=== PATIENT | male | born 1955 | race Two or more races ===

== ENCOUNTER 2019-07-30 22:47 | Inpatient (IN) | payer OTHER ==
[~2019-07-30] VITALS: Ht 170.2 cm; Wt 78.9 kg
--- NOTE | 2019-07-30 22:55 | NUR ---
RN OPENING NOTE: PT TRANSFERRED TO UNIT FROM [facility] VIA GURNEY ACCOMPANIED BY 2 EMT PERSONNEL. ADMIT DX OF EMPHYSEMA. A&OX4 AND AMBULATORY. ON 2L/MIN NC, SATING WELL. HAS BLE EDEMA. HAS LEFT AC #20 IV. PATENT, FLUSHED, CDI. SKIN INTACT, NOTED W/ ONLY BLE SCABS. PICTURES TAKEN AND PLACED IN CHART. VITALS ARE BP:141/76, P:89, RR:17, O2: 95% ON 2L NC, STATED NO PAIN AT THIS TIME. MED RECON WILL BE DONE. BED IN LOWEST AND LOCKED POSITION AND CALL LIGHT WITHIN REACH. WILL CONTINUE TO MONITOR. Addendum: 07/31/19 at 0153 by ROBERT ELENA RN ON TELE MONITOR SHOWING SR.
[2019-07-30] MEDS ORDERED: ALPR2TAB2 PO (23:57)
[2019-07-30] MEDS ORDERED: FURO-145 PO (23:57)
[2019-07-30] MEDS ORDERED: DIAZ10TA PO (23:57)
[2019-07-30] MEDS ORDERED: OXYC30TA2 PO (23:57)
[2019-07-31] VITALS (9 sets, daily range): BP systolic 117–151; BP diastolic 71–97
[2019-07-31] MEDS ORDERED: MAGNESIUM HYDROXIDE 30 ML UDC PO PRN
[2019-07-31] MEDS ORDERED: Z GUARD REMEDY 2 OZ OINT TP PRN
[2019-07-31] MEDS ORDERED: ACETAMINOPHEN 325 MG TABLET PO PRN
[2019-07-31] MEDS ORDERED: MAG HYDROX/AL HYDROX/SIMETH 30 ML UDC PO PRN
[2019-07-31] MEDS ORDERED: HYDROCODONE/APAP 5/325MG 1 EACH TABLET PO PRN
[2019-07-31] MEDS ORDERED: ONDANSETRON HCL/PF 4 MG/2 ML VIAL IVP PRN
[2019-07-31] MEDS ORDERED: ZOLPIDEM TARTRATE 5 MG TABLET PO PRN
[2019-07-31] MEDS ORDERED: LORAZEPAM INJ 2 MG/ML VIAL IV PRN (01:30)
[2019-07-31] MEDS ORDERED: ALPRAZOLAM 1 MG TABLET PO PRN (01:30)
--- NOTE | 2019-07-31 06:37 | NUR ---
RN CLOSING NOTES: PT RESTING IN BED ON 2L/MIN NC TOLERATING WELL. NO RESPIRATORY DISTRESS OR ACUTE CHANGES NOTED DURING SHIFT. PT NPO PER MD ORDER. ON TELE MONITOR SHOWING SR. NO COMPLAINTS OF PAIN AT THIS TIME. KEPT PT CLEAN AND DRY. IV SITE CDI. SAFETY MEASURES IN PLACE. BED IN LOWEST AND LOCKED POSITION, CALL LIGHT W/IN REACH. WILL ENDORSE TO AM NURSE FOR MTIZI.
--- NOTE | 2019-07-31 07:33 | NUR ---
CRATE REPAIRER OPENING NOTE PT WAS RECEIVED IN BED AT LOWEST AND LOCKED POSITION WITH SIDE RAILS UPX2, A/OX4 BREATHING EVEN AND UNLABORED ON 2L VIA WITH NO S/S OF ANY DISTRESS OR PAIN AT THIS TIME, IV IS PATENT AND INTACT, ON TELE MONITOR SHOWING SINUS RHYTHM, AWAITING FOR CARDIO CONSULT, SAFETY PRECAUTIONS IN PLACE, CALL LIGHT IN REACH, WILL MONITOR ACCORDINGLY
[2019-07-31] MEDS: DIAZEPAM 10 MG TABLET PO SCH ×2 (08:01→16:01)
[2019-07-31] MEDS: ASPIRIN 81 MG TAB.CHEW PO SCH (08:01)
[2019-07-31] MEDS: NICOTINE PATCH (21MG) 21 MG PATCH.TD24 TD SCH (08:01)
[2019-07-31 08:22] LABS: BASOPHILS % (AUTO) 0.7 % (0.0-2.0); EOSINOPHILS % (AUTO) 1.8 % (0.0-6.0); HEMATOCRIT 43 % (39-51); HEMOGLOBIN 14.1 g/dL (13.5-17.5); LYMPHOCYTES # (AUTO) 1.8 /CMM (0.8-4.8); LYMPHOCYTES % (AUTO) 27.9 % (20.0-44.0); MEAN CORPUSCULAR HGB CONC 33 g/dl (31.0-36.0); MEAN CORPUSCULAR VOLUME 93 fL (80-96); MONOCYTES # (AUTO) 0.5 /CMM (0.1-1.30); MONOCYTES % (AUTO) 7.7 % (2.0-12.0); NEUTROPHILS % (AUTO) 61.9 % (43.0-81.0); PLATELET COUNT (AUTO) 275 /CMM (150-450); RED BLOOD CELL COUNT(AUTO) 4.62 MIL/uL (4.5-6.0); WHITE BLOOD COUNT (AUTO) 6.5 K/uL (4.3-11.0)
[2019-07-31] MEDS ORDERED: FUROSEMIDE 20 MG TABLET PO SCH (09:00)
[2019-07-31] MEDS ORDERED: PANTOPRAZOLE 40 MG VIAL IV SCH (09:00)
[2019-07-31 09:05] LABS: CALCIUM, SERUM 8.4 mg/dL (8.5-10.1); PHOSPHORUS 3.1 mg/dL (2.5-4.9); POTASSIUM 3.5 mmol/L (3.5-5.1)
[2019-07-31 09:18] LABS: THYROID STIMULATING HORMONE 4.305 uIU/mL (0.358-3.74)
--- NOTE | 2019-07-31 10:39 | NUR ---
RN NOTE NOTIFIED OF PT NEEDING PAIN MEDICATION BUT DUE TO NPO DIAGNOSIS HE CANNOT TAKE ANY PO MEDS, ORDER RECEIVED FOR MORPHINE 2MG IV Q4H PRN
[2019-07-31] MEDS: MORPHINE SULFATE INJ 2 MG/ML DISP.SYRIN IV PRN (11:00)
[2019-07-31] MEDS ORDERED: ASPIRIN 81 MG TAB.CHEW PO SCH (12:00)
[2019-07-31] MEDS: PANTOPRAZOLE 40 MG TABLET.DR PO SCH (12:44)
[2019-07-31] MEDS: METOPROLOL TARTRATE 50 MG TABLET PO SCH ×2 (12:44→21:27)
[2019-07-31] MEDS: ATORVASTATIN 40 MG TABLET PO SCH (12:44)
[2019-07-31] MEDS: ENOXAPARIN SODIUM 40 MG/0.4 ML DISP.SYRIN SQ SCH (12:45)
--- NOTE | 2019-07-31 18:10 | NUR ---
OPTOMECHANICAL ENGINEER CLOSING NOTE PT IN BED AT LOWEST AND LOCKED POSITION WITH SIDE RAILS UPX2, A/OX4 BREATHING EVEN AND UNLABORED VIA NC WITH NO DISTRESS OR PAIN AT THIS TIME, IV IS PATENT AND INTACT, ON TELE MONITOR SHOWING SR, SAFETY PRECAUTIONS IN PLACE, CALL LIGHT IN REACH, ALL NEEDS ATTENDED TO, WILL ENDORSE TO NIGHT RN FOR MITZI.
--- NOTE | 2019-07-31 19:35 | NUR ---
MS RN OPENING NOTE RECEIVED PATIENT IN BED, A/O X 4. PATIENT IS AMBULATORY. ON 2L NS O2 TOLERATING WELL. BREATHING EVEN AND UNLABORED. NO SOB OR ACUTE DIASTERS NOTED AT THIS TIME. IV ON LAC # 20 SL, PATENT AND INTACT. NO INFILTRATION AT IV SITE. FAMILY AT BEDSIDE. SAFETY PRECAUTIONS IN PLACE, CALL LIGHT WITHIN REACH, BED IN LOW/LOCKED POSITION. WILL CONTINUE TO MONITOR.
[2019-08-01] VITALS (21 sets, daily range): BP systolic 134–166; BP diastolic 51–122
[2019-08-01] MEDS: MORPHINE SULFATE INJ 2 MG/ML DISP.SYRIN IV PRN ×3 (06:58→13:38)
[2019-08-01 07:28] LABS: BASOPHILS # (AUTO) 0.1 /CMM (0.0-0.2); BASOPHILS % (AUTO) 0.8 % (0.0-2.0); EOSINOPHILS % (AUTO) 3.8 % (0.0-6.0); HEMATOCRIT 42 % (39-51); HEMOGLOBIN 13.8 g/dL (13.5-17.5); LYMPHOCYTES # (AUTO) 1.8 /CMM (0.8-4.8); MEAN CORPUSCULAR HGB CONC 33 g/dl (31.0-36.0); MEAN CORPUSCULAR VOLUME 93 fL (80-96); MONOCYTES # (AUTO) 0.7 /CMM (0.1-1.30); MONOCYTES % (AUTO) 9.3 % (2.0-12.0); NEUTROPHILS # (AUTO) 4.6 /CMM (1.8-8.9); NEUTROPHILS % (AUTO) 62.1 % (43.0-81.0); PLATELET COUNT (AUTO) 276 /CMM (150-450); WHITE BLOOD COUNT (AUTO) 7.5 K/uL (4.3-11.0)
--- NOTE | 2019-08-01 07:41 | NUR ---
MS RN CLOSING NOTE PATIENT IN BED AWAKE, A/O X 4. PATIENT IS AMBULATORY. ON 2L NS O2 TOLERATING WELL. BREATHING EVEN AND UNLABORED. NO SOB OR ACUTE DIASTERS NOTED AT THIS TIME. IV ON LAC # 20 SL, PATENT AND INTACT. NO INFILTRATION AT IV SITE. PATIENT WAS NPO SINCE MID-NIGHT FOR CARDIAC CATH THIS MORNING. SAFETY PRECAUTIONS IN PLACE, CALL LIGHT WITHIN REACH, BED IN LOW/LOCKED POSITION. ENDORSED THE PATIENT TO AM RN FOR MITZI.
[2019-08-01 07:46] LABS: ALBUMIN 2.9 g/dL (3.4-5.0); BILIRUBIN,TOTAL 0.3 mg/dL (0.2-1.0); CALCIUM, SERUM 8.7 mg/dL (8.5-10.1); CREATININE 1.1 mg/dL (0.6-1.3); MAGNESIUM 1.9 mg/dL (1.8-2.4); PHOSPHORUS 3.5 mg/dL (2.5-4.9); POTASSIUM 3.7 mmol/L (3.5-5.1); TOTAL PROTEIN, SERUM 6.8 g/dL (6.4-8.2)
--- NOTE | 2019-08-01 08:09 | NUR ---
RN OPENING NOTES RECEIVED PATIENT IN BED AWAKE, A/O X 4. PATIENT IS AMBULATORY. ON 2L NS O2 TOLERATING WELL. BREATHING EVEN AND UNLABORED. NO SOB OR ACUTE DISTRESS NOTED AT THIS TIME. IV ON LAC # 20 SL, PATENT AND INTACT. NO INFILTRATION AT IV SITE. PATIENT WAS NPO SINCE MID-NIGHT FOR CARDIAC CATH THIS MORNING. SAFETY PRECAUTIONS IN PLACE, CALL LIGHT WITHIN REACH, BED IN LOW/LOCKED POSITION. WILL CONTINUE TO MONITOR.
[2019-08-01] MEDS: ENOXAPARIN SODIUM 40 MG/0.4 ML DISP.SYRIN SQ SCH ×2 (09:00→09:33)
[2019-08-01] MEDS: ASPIRIN 81 MG TAB.CHEW PO SCH (09:00)
[2019-08-01] MEDS: NICOTINE PATCH (21MG) 21 MG PATCH.TD24 TD SCH (09:10)
--- NOTE | 2019-08-01 09:37 | NUR ---
RN NOTES LOVENOX 40MG IS ON HOLD, PATIENT IS FOR CARDIAC CATH, ITS OPEN, WASTED AND WITNESSED BY RN.
[2019-08-01] MEDS ORDERED: VERAPAMIL HCL IV 5 MG/2 ML VIAL ONE (10:24)
[2019-08-01] MEDS ORDERED: LIDOCAINE HCL/PF 1% 30 ML SDV ONE (10:25)
[2019-08-01] MEDS ORDERED: NITROGLYCERIN ICAR 1,000 MCG/10 ML VIAL ICAR ONE (10:25)
[2019-08-01] MEDS ORDERED: IODIXANOL 320MG/ML 100 ML IV ONE (10:27)
[2019-08-01] MEDS ORDERED: IV NS 0.9% 1,000 ML ONE (10:32)
[2019-08-01] MEDS ORDERED: IV SET PRIMARY 1 EA INFUS.SET MC ONE (10:32)
[2019-08-01] MEDS ORDERED: IV NS 0.9% 50 ML IV ONE (10:35)
[2019-08-01] MEDS ORDERED: HEPARIN SODIUM, PORCINE 1,000 UNIT/ML VIAL ONE (10:37)
--- NOTE | 2019-08-01 11:07 | NUR ---
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 VITAL SIGN TAKEN AND RECORDED.
[2019-08-01] MEDS ORDERED: MIDAZOLAM HCL 2 MG/2ML VIAL ONE (11:38)
[2019-08-01] MEDS ORDERED: FENTANYL PF 100MCG/2ML AMPUL ONE (11:38)
--- NOTE | 2019-08-01 12:45 | NUR ---
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 TR band to R radius no bleeding noted. Pt's extremities all cool to touch; pt reports poor perfusion throughout as baseline. Bilat equal cap refill and perfusion noted. Pulses palpable and present throughout. Oriented to unit and POC, verbalized understanding. Will cont to monitor pt.
[2019-08-01] MEDS: PANTOPRAZOLE 40 MG TABLET.DR PO SCH (13:26)
[2019-08-01] MEDS: ATORVASTATIN 40 MG TABLET PO SCH (13:26)
[2019-08-01] MEDS ORDERED: IV NS 0.9% 1,000 ML IV ONE (13:30)
[2019-08-01] MEDS: METOPROLOL TARTRATE 50 MG TABLET PO SCH ×2 (13:35→20:40)
[2019-08-01] MEDS ORDERED: DIAZEPAM 5 MG TABLET PO SCH (17:00)
--- NOTE | 2019-08-01 18:05 | NUR ---
ICU/RN: Dr Crowley informed that pt still has TR band on; difficulty removing last 3-5cc air from band, starts bleeding and requires reinflation. No hematoma noted, pulses present and equal bilaterally, no neuro deficits noted. Per MD, if pt continues to bleed keep pt overnight.
--- NOTE | 2019-08-01 18:45 | NUR ---
ICU/RN: TR band off; no bleeding noted, tegaderm applied. Dr Crowley notified with instructions to keep observe pt longer prior to discharge; okay to discharge home if no more bleeding noted per MD. Pt in agreement with plan.
[2019-08-01] MEDS ORDERED: ASPI-1169 PO (19:08)
--- NOTE | 2019-08-01 19:30 | NUR ---
SAFETY GLASS INSTALLER INITIAL NOTED RECEIVED PATIENT IN BED, AWAKE, ALERT AND ORIENTED X4, ABLE TO VERBALIZE NEEDS. PATIENT S/P CARDIAC CATH, TR BAND REMOVED PRIOR TO START OF SHIFT. SITE NOTED TO BE COVERED WITH TEGADERM, NO BLEEDING NOTED. PATIENT SR ON TELEMONITOR, IV SITES PATENT AND INTACT, FLUSHED WITH NS, FREE FROM ANY S/S OF INFILTRATION OR PHLEBITIS. PLAN OF CARE DISCUSSED WITH PATIENT, INCLUDING DISCHARGE. PATIENT VERBALIZES UNDERSTANDING, ALL QUESTIONS ANSWERED ABLE. WILL CONTINUE TO MONITOR
--- NOTE | 2019-08-01 21:00 | NUR ---
RADIAL DRILL PRESS SET UP OPERATOR NOTES - DISCHARGE RADIAL SITE REMAINS COVERED WITH TEGADERM, NO BLEEDING AT SITE. ALL DISCHARGE INSTRUCTIONS DISCUSSED AND SIGNED, VERBALIZED UNDERSTANDING. PATIENT DISCHARGED TO HOME VIA PRIVATE AUTO.
== END 2019-08-01 21:02 | disposition home or self-care (01) | DRG 191 ==
LOC: TELE1 22:47 → MEDSG1 07-31 19:49 → ICU 08-01 11:28
PROVIDERS: ADMIT Student in an Organized Health Care Education/Training Program; ATTEND Nurse Practitioner Acute Care
DX: I25.10 Atherosclerotic heart disease of native coronary artery without angina pectoris (principal); J96.01 Acute respiratory failure with hypoxia; E27.8 Other specified disorders of adrenal gland; E78.5 Hyperlipidemia, unspecified; I71.9 Aortic aneurysm of unspecified site, without rupture; I10 Essential (primary) hypertension; G89.4 Chronic pain syndrome; F10.10 Alcohol abuse, uncomplicated; E83.51 Hypocalcemia; F17.200 Nicotine dependence, unspecified, uncomplicated; I73.9 Peripheral vascular disease, unspecified; N40.0 Benign prostatic hyperplasia without lower urinary tract symptoms
CPT/HCPCS: 36415; 80048-TC; 80053-TC; 80061-TC; 82533; 83735-TC; 84100-TC; 84443-TC; 84484-TC; 85025-TC; 93307-TC; A4216; C1887; C9113; G0378; J1644; J1650; J2250; J2270; J3010; J3490